=== PATIENT | female | born 1955 | race Caucasian/White ===

== ENCOUNTER → 2016-10-22 | Outpatient (CLI) | payer OTHER ==
[~2016-10-22] MED LIST: CALC600T9 PO; CHOL20009 PO; ESCI10TA17 PO; FURO-85 PO; LEVO150T PO; LISINOPRIL/HCTZ PO; LORA-741 PO; MULT-506 PO; OMEP40CA41 PO; OMG3 PO; OXYC-57 PO; SIMV20TA2 PO
[2016-10-22 13:24] LABS: ESTIMATED AVERAGE GLUCOSE 131 mg/dl; HA1C FLAG Normal (Normal)
[2016-10-22 14:30] LABS: BLOOD UREA NITROGEN 21 mg/dl (7-18); BUN/CREATININE RATIO 24.4 (10-20); CALCIUM 8.7 mg/dl (8.5-10.1); CARBON DIOXIDE 28 mmol/L (21-32); CHLORIDE 109 mmol/L (98-107); CHOLESTEROL 203 mg/dl (0-200); CHOLESTEROL/HDL RATIO 2.9; CREATININE 0.86 mg/dl (0.60-1.20); GLUCOSE 105 mg/dl (70-99); HDL CHOLESTEROL 71 mg/dl; SODIUM 143 mmol/L (136-145)
[2016-10-22 14:44] LABS: LDL CHOLESTEROL CALCULATED 117 mg/dl; TRIGLYCERIDES 73 mg/dl (0-150); VERY LOW DENSITY LIPOPROT CALC 15 mg/dl
== END | disposition home or self-care (01) ==
LOC: C.LABPBG 08:35
PROVIDERS: ATTEND Family Medicine
DX: Z11.59 Encounter for screening for other viral diseases (principal); E03.9 Hypothyroidism, unspecified; E78.5 Hyperlipidemia, unspecified

== ENCOUNTER → 2016-11-11 | Outpatient (CLI) | payer OTHER ==
[2016-11-11 13:47] LABS: LYME DISEASE AB IGG NEG (NEG); LYME DISEASE AB IGM NEG (NEG)
== END | disposition home or self-care (01) ==
LOC: C.LABPBG 08:35
PROVIDERS: ATTEND Family Medicine
DX: M19.90 Unspecified osteoarthritis, unspecified site (principal)

== ENCOUNTER → 2016-12-17 | Outpatient (CLI) | payer OTHER ==
[~2016-12-17] VITALS: Ht 168.9 cm; Wt 310.3 kg
[2016-12-17 16:05] VITALS: BP 159/76; PULSE 86; Ht 168.9 cm; Wt 310.3 kg
== END | disposition home or self-care (01) ==
LOC: C.NEUR 14:48
PROVIDERS: ATTEND Internal Medicine Pulmonary Disease
DX: G47.33 Obstructive sleep apnea (adult) (pediatric) (principal)

== ENCOUNTER → 2017-04-24 | Outpatient (CLI) | payer OTHER ==
--- NOTE | 2017-04-24 19:56 | DIAGNOSTIC IMAGING REPORT ---
THREE-PHASE NUCLEAR BONE SCAN OF THE KNEES CLINICAL HISTORY: Right knee pain status post arthroplasty. COMPARISON STUDY: Three-phase bone scan of the knees dated 02/20/2015. Radiograph of the right knee dated 01/17/2014. TECHNIQUE: Following the IV administration of 25.7 mCi of technetium 99m MDP, three-phase bone scan of the knees was performed. Anterior and posterior flow and blood pool phase imaging was acquired. Bone phase imaging of both knees was performed at three hours in multiple obliquities. Note that interpretation is suboptimal without current plain film correlate. FINDINGS: There is hyperemia identified around the left knee on both the flow and blood pool phase imaging. This is greatest around the distal femur. No significant hyperemia is seen involving the right knee. On the bone phase imaging there is a photopenic defect consistent with a right knee arthroplasty. There is slightly increased tracer activity identified around the tibial and femoral components of the arthroplasty. There is extensive abnormal tracer deposition seen around the left knee. IMPRESSION: 1. Three-phase positive bone scan of the left knee. This could represent advanced arthritic change, or less likely acute fracture or infection. Clinical correlation will be required. 2. Three-phase negative bone scan of the right knee. An arthroplasty is in place and there is increased tracer deposition identified around the arthroplasty on the bone phase imaging. This is nonspecific and could represent aseptic loosening. Clinical correlation will again be required. Electronically signed by: Eduin Germain M.D. 04/24/2017 5:15 PM Dictated Date/Time: 04/24/2017 5:11 PM
== END | disposition home or self-care (01) ==
LOC: C.NUCL 12:41
PROVIDERS: ATTEND Orthopaedic Surgery Sports Medicine
DX: M25.561 Pain in right knee (principal); Z96.651 Presence of right artificial knee joint

== ENCOUNTER → 2017-05-27 | Outpatient (CLI) | payer OTHER ==
[2017-05-27 15:34] LABS: SYNOVIAL FLUID APPEARANCE HAZY; SYNOVIAL FLUID COLOR PALE YELLOW; SYNOVIAL FLUID MONONUC RELAT 68.7 %; SYNOVIAL FLUID POLYNUC RELAT 31.3 %
== END ==
LOC: C.LABSPEC 14:06
PROVIDERS: ATTEND Orthopaedic Surgery Sports Medicine
DX: Z96.651 Presence of right artificial knee joint (principal)

== ENCOUNTER → 2017-08-11 | Outpatient (CLI) | payer OTHER ==
[2017-08-11 17:38] LABS: BASO % 0.5 %; BASO ABS # 0.05 K/uL (0-0.2); EOS % 4.5 %; EOS ABS # 0.45 K/uL (0-0.5); HEMATOCRIT 39.1 % (37-47); HEMOGLOBIN 12.7 g/dL (12.0-16.0); IG# 0.02 K/uL (0.00-0.02); LYMPH % 26.3 %; LYMPH ABS # 2.62 K/uL (1.2-3.4); MEAN CORPUSCULAR HEMOGLOBIN 30.5 pg (25-34); MEAN CORPUSCULAR HGB CONC 32.5 g/dl (32-36); MEAN PLATELET VOLUME 10.2 fL (7.4-10.4); MONO % 7.3 %; MONO ABS # 0.73 K/uL (0.11-0.59); NEUT % 61.2 %; NEUT ABS # 6.11 K/uL (1.4-6.5); PLATELET COUNT 296 K/uL (130-400); RED CELL DISTRIBUTION WIDTH CV 14.2 % (11.5-14.5); RED CELL DISTRIBUTION WIDTH SD 48.9 fL (36.4-46.3); WHITE BLOOD COUNT 9.98 K/uL (4.8-10.8)
[2017-08-13 14:09] LABS: ANA SCREEN TC 249X NEGATIVE (NEGATIVE)
== END | disposition home or self-care (01) ==
LOC: C.LABPBG 15:43
PROVIDERS: ATTEND Family Medicine
DX: M19.90 Unspecified osteoarthritis, unspecified site (principal)

== ENCOUNTER → 2017-09-04 | Outpatient (CLI) | payer OTHER ==
[2017-09-04 13:31] LABS: BLOOD UREA NITROGEN 27 mg/dl (7-18); CARBON DIOXIDE 27 mmol/L (21-32); GLUCOSE 125 mg/dl (70-99); POTASSIUM 4.1 mmol/L (3.5-5.1); SODIUM 138 mmol/L (136-145); URIC ACID 5.5 mg/dl (2.6-7.2)
== END | disposition home or self-care (01) ==
LOC: C.LABPBG 10:39
PROVIDERS: ATTEND Nurse Practitioner Adult Health
DX: M19.90 Unspecified osteoarthritis, unspecified site (principal); I10 Essential (primary) hypertension

== ENCOUNTER 2025-04-22 09:28 | Observation (INO) ==
--- NOTE | 2025-03-18 09:51 | PAT Medication Instructions ---
Medication Instructions Date of Service March 18, 2025 Home Medications Medication Instructions Recorded lorazepam 0.5 mg tablet 0.5 mg PO TID PRN anxiety #30 tabs 06/25/23 simvastatin 20 mg tablet 20 mg PO QAM #90 tabs 08/06/24 metformin 500 mg tablet 500 mg PO QAM #90 tabs 11/22/24 lisinopril 5 mg tablet 5 mg PO DAILY #90 tabs 01/12/25 cyanocobalamin (vitamin B-12) 1,000 mcg tablet,extended release 1,000 mcg PO QAM calcium carbonate (Calcium 600) 600 mg PO QAM multivitamin 1 tab PO QAM omeprazole 20 mg capsule,delayed release 20 mg PO QAM furosemide 20 mg tablet 20 mg PO DAILY PRN Edema scopolamine base 1 mg over 3 days transdermal patch 1 patch transdermal Q3D PRN Traveling lorazepam 0.5 mg tablet 0.5 mg PO TID PRN anxiety biotin 5 mg capsule 5 mg PO DAILY buspirone 5 mg tablet 5 mg PO QAM topiramate 25 mg tablet 25 mg PO HS PRN as per patient simvastatin 20 mg tablet 20 mg PO QAM metformin 500 mg tablet 500 mg PO QAM semaglutide 2 mg/dose (8 mg/3 mL) subcutaneous pen injector (Ozempic) 2 mg subcut Q7D escitalopram oxalate 20 mg tablet 20 mg PO QAM triamcinolone acetonide 0.1 % topical ointment 1 applic topical BID PRN Skin Irritation lisinopril 5 mg tablet 5 mg PO DAILY levothyroxine 150 mcg tablet (Synthroid) 150 mcg PO UD Continue as directed scopolamine base 1 mg over 3 days transdermal patch 1 patch transdermal Q3D PRN Traveling STOP 7 days prior to surgery semaglutide 2 mg/dose (8 mg/3 mL) subcutaneous pen injector (Ozempic) 2 mg subcut Q7D STOP taking 24 hours before surgery triamcinolone acetonide 0.1 % topical ointment 1 applic topical BID PRN Skin Irritation DO NOT take the morning of surgery cyanocobalamin (vitamin B-12) 1,000 mcg tablet,extended release 1,000 mcg PO QAM calcium carbonate (Calcium 600) 600 mg PO QAM multivitamin 1 tab PO QAM furosemide 20 mg tablet 20 mg PO DAILY PRN Edema biotin 5 mg capsule 5 mg PO DAILY metformin 500 mg tablet 500 mg PO QAM lisinopril 5 mg tablet 5 mg PO DAILY Take morning of surgery With a small sip of water, OTHERWISE NOTHING TO EAT OR DRINK AFTER MIDNIGHT: omeprazole 20 mg capsule,delayed release 20 mg PO QAM lorazepam 0.5 mg tablet 0.5 mg PO TID PRN anxiety (if needed) buspirone 5 mg tablet 5 mg PO QAM simvastatin 20 mg tablet 20 mg PO QAM escitalopram oxalate 20 mg tablet 20 mg PO QAM levothyroxine 150 mcg tablet (Synthroid) Take evening before surgery furosemide 20 mg tablet 20 mg PO DAILY PRN Edema (if needed) lorazepam 0.5 mg tablet 0.5 mg PO TID PRN anxiety (if needed) topiramate 25 mg tablet 25 mg PO HS PRN as per patient (if needed) Other Notes If you have any questions please call us at [phone] or [phone] or [phone] or [phone]
--- NOTE | 2025-03-23 15:17 | Anesthesiology Consultation ---
Date of Service March 23, 2025 Assessment & Plan (1) Encounter for pre-operative examination: - Check BSG DOS - Infectious disease screening: Per assessment on 03/17/25- No known recent infectious disease contacts or current infectious disease symptoms. - Outpatient joint assessment: Pt currently scheduled for inpatient pathway. If surgeon requests review for outpatient joint pathway, patient is not a recommended candidate for outpatient joint program from anesthesia standpoint based on available information. - GLP-1 medication instructions: Patient informed by PAT to stop 7 days prior to surgery- voiced understanding. DOS 04/22. Advised last dose to be 04/10. - S/P MRI lumbar spine 01/2025, under [facility], [facility]. No issues noted per post-op anesthesia progress note. Chart Review Chart Review: Acceptable Risk for Surgery and Patient seen in Pre Admission Testing Teaching & Discussion Pre-Anesthesia Teaching/Discussion Notes: Instructed NPO after midnight before surgery,except medications with 15 cc of water. Medication instructions provided according to the PAT guidelines. History Surgery Operation Date: 04/22/25 09:00 Proposed Procedures p Robotic Assisted Left Total Knee Arthroplasty - Wallace Mckinney, Height/Weight Height: 5 ft 6 in Weight: 118.1 kg Allergies Allergy/AdvReac Type Severity Reaction Status Date / Time Penicillins Allergy Intermediate Hives Verified 03/23/25 11:31 cephalexin [From Keflex] Allergy Mild Rash, Verified 03/23/25 11:31 Itchiness bupropion [From Contrave] AdvReac Mild Nausea Verified 03/23/25 11:31 naltrexone [From Contrave] AdvReac Mild Nausea Verified 03/23/25 11:31 venlafaxine AdvReac Mild Nausea Verified 03/23/25 11:31 Medications Home Medications Medication Instructions Recorded Confirmed Last Taken cyanocobalamin (vitamin B-12) 1,000 mcg PO QAM 10/05/21 03/23/25 1 Week Ago 1,000 mcg tablet,extended release ~01/04/25 calcium carbonate (Calcium 600) 600 mg PO QAM 10/24/21 03/23/25 1 Week Ago ~01/04/25 multivitamin 1 tab PO QAM 10/24/21 03/23/25 1 Week Ago ~01/04/25 omeprazole 20 mg capsule,delayed 20 mg PO QAM 10/24/21 03/23/25 01/10/25 10:00 release furosemide 20 mg tablet 20 mg PO DAILY PRN Edema 03/15/22 03/23/25 2 Years Ago ~01/11/23 scopolamine base 1 mg over 3 days 1 patch transdermal Q3D PRN 03/15/22 03/23/25 Unknown transdermal patch Traveling lorazepam 0.5 mg tablet 0.5 mg PO TID PRN anxiety #30 tabs 06/25/23 03/23/25 2 Months Ago ~11/11/24 biotin 5 mg capsule 5 mg PO DAILY 05/24/24 03/23/25 1 Week Ago ~01/04/25 buspirone 5 mg tablet 5 mg PO QAM 05/24/24 03/23/25 01/10/25 10:00 topiramate 25 mg tablet 25 mg PO HS PRN as per patient 05/24/24 03/23/25 2 Months Ago ~11/11/24 simvastatin 20 mg tablet 20 mg PO QAM #90 tabs 08/06/24 03/23/25 01/10/25 10:00 metformin 500 mg tablet 500 mg PO QAM #90 tabs 11/22/24 03/23/25 01/10/25 10:00 semaglutide 2 mg/dose (8 mg/3 mL) 2 mg subcut Q7D 12/06/24 03/23/25 01/02/25 subcutaneous pen injector (Ozempic) escitalopram oxalate 20 mg tablet 20 mg PO QAM 12/28/24 03/23/25 01/10/25 10:00 triamcinolone acetonide 0.1 % 1 applic topical BID PRN Skin 12/28/24 03/23/25 1 Month Ago topical ointment Irritation ~12/12/24 lisinopril 5 mg tablet 5 mg PO DAILY #90 tabs 01/12/25 03/23/25 Unknown levothyroxine 150 mcg tablet 150 mcg PO UD 03/17/25 03/23/25 Unknown (Synthroid) Past Medical History Medical History Anxiety and depression Bilateral edema of lower extremity Hx, no current issues, PRN lasix Chronic low back pain Unable to lay for MRI - reason for procedure 01/11/25 Claustrophobia Enlarged pulmonary artery See 08/12/2019 cardiology consult: prompted by enlarged central pulmonary arteries on 2018 x-ray and question of possible pulmonary HTN-felt possibly could be present, "not much evidence that she has pulmonary hypertension...cannot definitively exclude..." felt that additional testing was not needed given pt asymptomatic status at that time, prn f/u GERD (gastroesophageal reflux disease) Heart murmur Echo 12/22/24- no significant valvular abnormalities Hx of migraines Hyperlipidemia Hypertension Hypothyroidism Morbid obesity with BMI of 50.0-59.9, adult Prediabetes Oral/Weekly Injectable Rheumatoid arthritis Seasonal allergies Sleep apnea CPAP Exercise / Class Metabolic Activity II 4-5 Yardwork/Stairs/Walk up hill (one FS: No CP, no SOB) Past Family History Family History Father Cardiac disorder Hypertension Mother Cardiac disorder Hypertension Alzheimer disease Unknown Myocardial infarction Sister No problems noted. Brother No problems noted. Brother Hypertension Denies family history of Ovarian cancer Prostate cancer Breast cancer Colorectal cancer Past Surgical History Surgical History History of anesthesia reaction Slow to wake up History of ankle surgery Right History of arthroscopy Left Knee History of carpal tunnel surgery Right History of cataract surgery Bilateral History of cholecystectomy History of colonoscopy History of knee replacement Right History of repair of rotator cuff Right History of revision of total replacement of right knee joint multiple Hx of magnetic resonance imaging 01/2025, MRI lumbar spine under [facility], [facility] PONV (postoperative nausea and vomiting) [place] teeth removed Past Anesthesia History No Family Hx of Anesthesia Complications and Other (Slow to wake) History of PONV History of PONV (+ nausea) and Hx of Motion Sickness Social History Smoking Status: Never smoker Do You Dip or Chew Tobacco: No Hx Alcohol Use: Yes Alcohol type: hard liquor alcohol intake frequency: a few times a month Hx Substance Use: No substance use type: does not use Review of Systems Patient denies chest pain, shortness of breath, dyspnea on exertion, fever, chills, cough, wheezing, palpitations. Physical Exam Vital Signs BP 117/66 P 72 TEMP 98.0 SP02 96%RA RESP 16 Physical Full cervical extension range of motion. Full TMJ range of motion. TMD > 3.5 finger breaths Mallampati Score II Dentition: missing molar, + crowns, + chipped teeth (lower front, upper right molar) Lungs: clear throughout to auscultation Cardiac: regular rate and rhythm, no murmurs noted Spine: normal Carotid arteries: negative bruit Extremities: no LE edema Lab Results Anesthesia Preop Results Results Anesthesia Widget: WBC 8.90 K/ul (4.8-10.8) 03/23/25 Hgb 12.6 g/dl (12.0-16.0) 03/23/25 Hct 37.8 % (37.0-47.0) 03/23/25 Plt 269 K/uL (130-400) 03/23/25 Na 139 mmol/L (136-145) 03/23/25 K 4.4 mmol/L (3.5-5.1) 03/23/25 Cl 105 mmol/L (98-107) 03/23/25 CO2 29 mmol/L (21-32) 03/23/25 BUN 17 mg/dl (6-23) 03/23/25 Creat 0.72 mg/dl (0.6-1.2) 03/23/25 Glucose Level 99 mg/dl (70-99(Fasting)) 03/23/25 PT 10.8 Seconds (9.0-12.0) 03/23/25 PTT 25 Seconds (21-31) 03/23/25 INR 1.0 (0.9-1.1) 03/23/25 TSH 0.045 uIu/ml (0.300-4.500) L 03/22/25 Free T4 1.48 ng/dl (0.61-1.60) 03/22/25 Blood Type A Positive 03/23/25 Antibody Screen NEGATIVE 03/23/25 Testing Electrocardiogram Date: 01/11/25 Findings: + NSR @ (67) Chest X-Ray Date: 03/23/25 Findings: + NAD Echocardiogram Date: 12/22/24 EF: >70% Other Findings: + LVH (mild/concentric) and + diastolic dysfunction (Grade I ) Hyperdynamic LV systolic function RWMA cannot be excluded due to limited visualization Probable normal chamber dimensions No significant valvular abnormalities
--- NOTE | 2025-04-21 07:47 | History & Physical Report ---
Date of Service April 21, 2025 Assessment & Plan (1) Osteoarthritis of left knee: We will proceed with a left total knee arthroplasty. Postoperatively, she will be started on aspirin for DVT prophylaxis and kept overnight hospital for postop medical management. She plans to have the hospital set up home health for discharge. History of Present Illness Chief Complaint: Osteoarthritis of the left knee. Primary Care Provider: Adwoa Nielsen MD Sarah is a pleasant 69-year-old female who has been dealing with chronic worsening left knee pain. She has a history of a right total knee arthroplasty done by Dr. Terrazas. He had to do a revision for a loose patella. Unfortunately, she was still having pain. She then went to [facility] and had a full revision of her right knee. She is still having some soreness with that. She is now dealing with a lot of left knee pain. X-rays and clinical examination have shown advanced arthritis of the left knee. After failing conservative treatment, she has elected proceed with a left total knee arthroplasty. Allergies Allergy/AdvReac Type Severity Reaction Status Date / Time Penicillins Allergy Intermediate Hives Verified 04/18/25 08:58 cephalexin [From Keflex] Allergy Mild Rash, Verified 04/18/25 08:58 Itchiness bupropion [From Contrave] AdvReac Mild Nausea Verified 04/18/25 08:58 naltrexone [From Contrave] AdvReac Mild Nausea Verified 04/18/25 08:58 venlafaxine AdvReac Mild Nausea Verified 04/18/25 08:58 Home Medications Medication Instructions Recorded Confirmed Type cyanocobalamin (vitamin B-12) 1,000 mcg PO QAM 10/05/21 04/18/25 History 1,000 mcg tablet,extended release calcium carbonate (Calcium 600) 600 mg PO QAM 10/24/21 04/18/25 History multivitamin 1 tab PO QAM 10/24/21 04/18/25 History omeprazole 20 mg capsule,delayed 20 mg PO QAM 10/24/21 04/18/25 History release scopolamine base 1 mg over 3 days 1 patch transdermal Q3D PRN 03/15/22 04/18/25 History transdermal patch Traveling lorazepam 0.5 mg tablet 0.5 mg PO TID PRN anxiety #30 tabs 06/25/23 04/18/25 Rx biotin 5 mg capsule 5 mg PO DAILY 05/24/24 04/18/25 History buspirone 5 mg tablet 5 mg PO QAM 05/24/24 04/18/25 History simvastatin 20 mg tablet 20 mg PO QAM #90 tabs 08/06/24 04/18/25 Rx metformin 500 mg tablet 500 mg PO QAM #90 tabs 11/22/24 04/18/25 Rx triamcinolone acetonide 0.1 % 1 applic topical BID PRN Skin 12/28/24 04/18/25 History topical ointment Irritation lisinopril 5 mg tablet 5 mg PO DAILY #90 tabs 01/12/25 04/18/25 Rx escitalopram oxalate 20 mg tablet 20 mg PO QAM #90 tabs 03/29/25 04/18/25 Rx Synthroid 150 mcg tablet 150 mcg PO DAILY #90 tabs 04/18/25 04/18/25 Rx (levothyroxine) semaglutide 2 mg/dose (8 mg/3 mL) 2 mg (0.75 mL) subcut Q7D #3 mL 04/18/25 04/18/25 Rx subcutaneous pen injector (Ozempic) topiramate 25 mg tablet 25 mg PO HS as per patient 04/18/25 04/18/25 History Past Med/Surg History Problem List Osteoarthritis of left knee Encounter for pre-operative examination Hair loss Graves disease Hypothyroidism, postablative Nocturnal hypoxemia Severe obstructive sleep apnea GERD without esophagitis Chronic back pain Metabolic syndrome Neurogenic claudication due to lumbar spinal stenosis Rheumatoid arthritis History of colon polyps Degenerative arthritis of interphalangeal joint of right thumb Pain of right thumb Pulmonary hypertension Motion sickness (Acute) Prediabetes (Chronic) Obesity (Chronic) Hypertension (Chronic) Fatigue (Chronic) Depression (Chronic) Chronic pain of right knee (Chronic) Bilateral edema of lower extremity (Chronic) Arthritis (Chronic) Anxiety (Chronic) Allergic rhinitis (Chronic) Medical History Hyperlipidemia Heart murmur Echo 12/22/24- no significant valvular abnormalities Sleep apnea CPAP Hypothyroidism Hypertension Chronic low back pain Unable to lay for MRI - reason for procedure 01/11/25 Claustrophobia Bilateral edema of lower extremity Hx, no current issues, PRN lasix Seasonal allergies Enlarged pulmonary artery See 08/12/2019 cardiology consult: prompted by enlarged central pulmonary arteries on 2018 x-ray and question of possible pulmonary HTN-felt possibly could be present, "not much evidence that she has pulmonary hypertension...cannot definitively exclude..." felt that additional testing was not needed given pt asymptomatic status at that time, prn f/u Morbid obesity with BMI of 50.0-59.9, adult Rheumatoid arthritis GERD (gastroesophageal reflux disease) Prediabetes Oral/Weekly Injectable Anxiety and depression Hx of migraines Surgical History Hx of magnetic resonance imaging 01/2025, [place] lumbar spine [place] [facility] (postoperative nausea and vomiting) History of revision of total replacement of right knee joint multiple History of anesthesia reaction Slow to wake up History of arthroscopy Left Knee History of colonoscopy [place] teeth removed History of cataract surgery Bilateral History of carpal tunnel surgery Right History of cholecystectomy History of ankle surgery Right History of repair of rotator cuff Right History of knee replacement Right Family History Father Cardiac disorder Hypertension Mother Cardiac disorder Hypertension Alzheimer disease Unknown Myocardial infarction Sister No problems noted. Brother No problems noted. Brother Hypertension Denies family history of Ovarian cancer Prostate cancer Breast cancer Colorectal cancer Social History Smoking Status: Never smoker Second Hand Exposure: No; Do You Dip or Chew Tobacco: No; Tobacco Cessation Education Requested by Patient: No Hx Alcohol Use: Yes Alcohol type: hard liquor Alcohol Intake Frequency: 2-4 x/Month Hx Substance Use: No Preferred Language: Kiswahili Communication Ability: Effective Visual Impairment: Limited Hearing Ability: Normal Senior Technical Editor Required: No Beliefs That Will Affect Care: None marital status: Single Current Living Situation: Significant Other current occupational status: retired current occupation: surg tech Other Information That Helps Us Care for You: No Feels Safe at Home: Yes Safety Concerns: Feels Safe At This Time Childhood Exposure to Second-Hand Smoke: Yes Dental Care, Regularly: Yes Physical Activity Frequency: 1-2 Times per Week Physical Activity Frequency Comment: water aerobics Seatbelt Use: always Sunscreen Use: Yes Assistive Devices: Contacts, CPAP and Glasses Review of Systems All systems reviewed & are unremarkable except as noted in HPI & below. Physical Exam On physical exam the left knee, she has slight valgus Forni. Tense palpation of the distal lateral femoral condyle and over the lateral joint line.. Constitutional WD/WN, vitals as above Eyes PERRL, conjunctivae normal, anicteric sclerae ENMT external ear and nose normal, oropharynx normal Neck trachea midline, no thyromegaly Respiratory normal respiratory effort Cardiovascular RRR, no murmur, no edema Gastrointestinal (Abdomen) normal bowel sounds, soft, nontender, no hepatosplenomegaly Psychiatric A+Ox3, euthymic affect Results & Data Results & Data Laboratory Results . Diagnostic Findings . PG Care Time/CCT Total # of Minutes Spent Total Time Spent with Patient: Total time spent is greater than 50% in coordination of care (as documented) at patient's floor/unit and/or counseling patient: Coding Level of Care Code None Diagnoses Osteoarthritis of left knee M17.12
[~2025-04-22 09:28] MED LIST changes: -CALC600T9 PO; -CHOL20009 PO; -ESCI10TA17 PO; -FURO-85 PO; -LEVO150T PO; -LISINOPRIL/HCTZ PO; -LORA-741 PO; -MULT-506 PO; -OMEP40CA41 PO; -OMG3 PO; -OXYC-57 PO; +ROPIVACAINE 0.5% 5 MG/ML 30 ML VIAL ONE; -SIMV20TA2 PO
[2025-04-22] MEDS ORDERED: PROPOFOL IV EMULSION 10 MG/ML 100 ML VIAL IV ONE (09:55)
[2025-04-22] MEDS ORDERED: LIDOCAINE 2% 2 ML VIAL/AMP(20MG/ML) INFIL ONE (09:56)
[2025-04-22] MEDS ORDERED: MIDAZOLAM HCL 1 MG/ML 2ML VIAL ONE ×2 (09:56→11:10)
[2025-04-22] MEDS: ACETAMINOPHEN 500 MG TAB PO SCH ×2 (09:58→17:40)
[2025-04-22] MEDS: GABAPENTIN 300 MG CAP PO SCH (09:58)
[2025-04-22] MEDS: FAMOTIDINE 20 MG TAB PO SCH (09:58)
[2025-04-22] MEDS: LR 500ML BOLUS, THEN 15ML/HR IV SCH (10:16)
[2025-04-22] MEDS: LR 60ML/HR IV SCH (10:16)
[2025-04-22] MEDS: dexAMETHasone**PF** 10 MG/ML VIAL IV SCH (10:16)
--- NOTE | 2025-04-22 10:26 | History & Physical Bridge Note ---
Date of Service April 22, 2025 History & Physical Bridge Note I have examined the patient, reviewed the History & Physical and in the interval since the performance of the History & Physical I have noted the following changes of clinical significance: no changes noted
[2025-04-22] MEDS ORDERED: ATROPINE SULFATE 0.1 MG/ML 10ML SYR IV PRN (10:52)
[2025-04-22] MEDS ORDERED: HYDROmorphone INJ 1 MG/ML SYRINGE IV PRN (10:52)
[2025-04-22] MEDS ORDERED: ONDANSETRON INJ 2 MG/ML 2 ML VIAL IV PRN ×2 (10:52→15:25)
[2025-04-22] MEDS: TRANEXAMIC ACID 1,000 MG **IV Pre-op IV SCH (11:09)
[2025-04-22] MEDS ORDERED: ePHEDrine sulfate 50 MG/5 ML SYR ONE (11:37)
[2025-04-22] MEDS: ORTHO JOINT ANESTHETIC ONE (11:52)
[2025-04-22] MEDS: ROPIV 0.5% 246mg, Ketorolac 30mg, EPINEPHrine 0.5mg in NSS INFIL SCH (12:27)
--- NOTE | 2025-04-22 12:36 | Operative Report ---
PG Post Operative Report Pre & Post Diagnosis Operation Date: 04/22/25 11:00 Pre-Op Diagnosis: Osteoarthritis of left knee Post-Op Diagnosis: Osteoarthritis of left knee I identified the patient and participated in the time-out.: Yes Procedure Operation Date: 04/22/25 11:00 Actual Procedures p Robotic Assisted Left Total Knee Arthroplasty(Left) - Wallace Mckinney DO Surgeon Wallace Mckinney DO Folded Towel Machine Operator Alexander De Luna PA-C Estimated Blood Loss 30 Findings Consistent with Post-Op Diagnosis Specimens Left femoral and tibial bone Description of Procedure Implants used: I used a Earl Persona total knee arthroplasty system with a size 8 standard PS femur, D tibia, 29 patella, and a size 12 CPS polyethylene bearing. All components were press-fit in place. Sarah arrived [facility] for the above procedure. She was seen in the preoperative holding area and the operative extremity was identified and signed. She was given a preoperative antibiotic, TXA, a spinal anesthetic and an adductor nerve block. She was taken back to the operating room and laid on the table in supine position. She was given basic sedation. The operative knee was then prepped and draped in sterile fashion. A timeout was done, and the patient and the operative extremity was properly identified. A midline incision was made directly over the patella. Dissection was taken down to the extensor mechanism. A medial parapatellar arthrotomy was used. The medial retinaculum was released and the fat pad was mostly excised. The knee was flexed and the ACL, PCL, and meniscus were removed. The alignment of the knee replacement was assisted with a Earl[employer] robotic knee. The femoral array was pinned in the distal femur and the tibial array was pinned using a percutaneous technique in the upper shaft of the tibia. The robot was appropriately calibrated and the structure of the knee was mapped out. The components were then manipulated on the screen to account for any malalignment and to assist in gap balancing. Once I was happy with the placement of the components on the screen, a distal femoral cutting guide was brought in place. The distal femur was then resected. The femur measured to be a size 8. A 4-in-1 cutting block was then put into place by the robot and 2 peg holes were drilled. The 4-in-1 cutting block was then impacted into place and anterior, posterior, and chamfer cuts were made. The cutting block was then brought down to the tibia and pinned into place. The proximal tibia was then resected. The posterior aspect of the knee was then opened up and any additional meniscus fragments and osteophytes were removed. The tibia measured to be a size D. The tibial plate was then placed in the appropriate rotation and the tibia was drilled and punched. Trial components were then placed. The patella was then everted and 9 mm was resected off the posterior aspect of the patella. The patella measured to be a size 29. 3 peg holes were then drilled. A trial patella was placed. A size 12 CPS polyethylene insert was then trialed. The knee was brought through a full range of motion and felt to be stable. Trial components were then removed. The surrounding soft tissues were injected with 100 cc of an orthopedic pain control cocktail. All components were then press-fit into place. The final polyethylene insert was then snapped into place. The tourniquet was deflated. Hemostasis was obtained. A dilute betadyne lavage was then done for 3 minutes. The joint was then irrigated with normal saline solution. The medial parapatellar arthrotomy was then closed with #1 Vicryl suture. The skin was closed with 2-0 Vicryl, 3-0V lock suture, and [place] Zipline. A soft compressive dressing was placed. She was then transferred to a hospital bed and taken to the postanesthesia care unit in stable condition. She tolerated the procedure well. Alexander De Luna PA-C, was present for the entire procedure. He was critical for patient positioning, prepping, draping, retraction exposure, wound closure and application of sterile dressing. I attest to the content of the Intraoperative Record and any orders documented therein. Any exceptions are noted below.
--- NOTE | 2025-04-22 13:45 | XRay Report ---
XR knee LT 1 or 2V routine CLINICAL HISTORY: Surgical Post Op COMPARISON: None FINDINGS: Left knee prosthesis shows no hardware complication. There is expected soft tissue gas. IMPRESSION: Unremarkable postoperative exam. ACT 112: Negative or not required by law. Electronically signed by: Jason Cole M.D. 04/22/2025 1:44 PM
--- NOTE | 2025-04-22 14:54 | Anesthesiology Progress Note ---
Date of Service April 22, 2025 Anesthesia Post Procedure Vital Signs Vital Signs: Temp Pulse Resp BP BP Pulse Ox O2 Del Method 04/22/25 14:30 64 18 115/64 94 Room Air 04/22/25 14:15 66 20 118/62 95 Room Air 04/22/25 14:05 64 22 121/62 94 Room Air 04/22/25 13:55 62 24 128/64 94 Room Air 04/22/25 13:45 63 20 125/62 97 Room Air 04/22/25 13:35 62 20 134/66 96 Room Air 04/22/25 13:25 69 19 120/60 97 Room Air 04/22/25 13:15 67 20 138/61 100 Oxymask 04/22/25 13:06 36.1 C L 73 16 138/60 100 Oxymask 04/22/25 09:49 36.5 C 70 20 136/63 96 Room Air O2 Flow Rate 04/22/25 14:30 04/22/25 14:15 04/22/25 14:05 04/22/25 13:55 04/22/25 13:45 04/22/25 13:35 04/22/25 13:25 04/22/25 13:15 3 04/22/25 13:06 6 04/22/25 09:49 Pain Intensity Left Knee: Pain Intensity: 7 Back: Pain Intensity: 5 Transfer of Care Handoff Completed per policy Notes Mental Status: alert / awake / arousable and participated in evaluation Patient Amnestic to Procedure: Yes Nausea / Vomiting: adequately controlled Pain: adequately controlled Airway Patency, RR, SpO2: stable & adequate BP & HR: stable & adequate Hydration State: stable & adequate Anesthetic Complications: no major complications apparent and Pt Satisfied with anesthetic care
[2025-04-22] MEDS ORDERED: HYDROmorphone INJ 0.5 MG/0.5 ML SYR IV PRN (15:25)
[2025-04-22] MEDS ORDERED: NON-FORMULARY MEDICATION (Semaglutide [Ozempic] 2 mg/dose (8 mg/3 mL) pen injector) SQ SCH (15:25)
[2025-04-22] MEDS ORDERED: METOCLOPRAMIDE HCL INJ 5 MG/ML 2 ML VIAL IV PRN (15:25)
[2025-04-22] MEDS ORDERED: PHARMACY GLYCEMIC MGMT CONSULT PRN (15:25)
[2025-04-22] MEDS ORDERED: MAGNESIUM HYDROXIDE SUSP 30 ML UDC PO PRN (15:25)
[2025-04-22] MEDS ORDERED: NALOXONE HCL 0.4 MG/1 ML VIAL/CARP IV PRN (15:25)
[2025-04-22] MEDS: SODIUM CHLORIDE 0.9% 1,000 ML IV SCH (17:09)
[2025-04-22] MEDS: INSULIN ASPART PER UNIT CHARGE SC SCH (17:34)
[2025-04-22] MEDS: LANTUS PER UNIT CHARGE SC ONE (17:34)
[2025-04-22] MEDS: KETOROLAC TROMETHAMINE 15 MG/ML VIAL IV SCH (17:36)
[2025-04-22] MEDS: SENNA 8.6 MG TAB PO SCH (21:53)
[2025-04-22] MEDS: TOPIRAMATE 25 MG TAB PO SCH (21:53)
[2025-04-22] MEDS: DOCUSATE SODIUM 100 MG CAP PO SCH (21:53)
[2025-04-22] MEDS: ASPIRIN 81 MG ECTAB PO SCH (21:54)
[2025-04-23 03:05] VITALS: RESP 16
[2025-04-23] MEDS: LEVOTHYROXINE SODIUM 150 MCG TABLET PO SCH (05:35)
[2025-04-23 07:10] VITALS: BP 111/74; PULSE 69; TEMP 97.5; O2SAT 98
[2025-04-23] MEDS: busPIRone 5 MG TAB PO SCH (08:24)
[2025-04-23] MEDS: CALCIUM CARBONATE 1250MG TAB PO SCH (08:25)
[2025-04-23] MEDS: MULTIVITAMIN TAB PO SCH (08:25)
[2025-04-23] MEDS: ESCITALOPRAM OXALATE 20 MG TAB PO SCH (08:25)
[2025-04-23] MEDS: SIMVASTATIN 20 MG TAB PO SCH (08:25)
--- NOTE | 2025-04-23 09:09 | Orthopedic Progress Note ---
Date of Service April 23, 2025 Assessment & Plan (1) Status post left knee replacement: Overall she is doing very well. She is not having much pain in the left knee. She will be seen by physical therapy today for ambulation and range of motion exercises. The nursing staff can change her dressing after physical therapy. She is on aspirin for DVT prophylaxis. She can be discharged home later today. She will follow-up with orthopedics in 2 weeks. Lana Smith was seen and examined at bedside this morning. Overall she is doing very well. She is not having much pain in the left knee. She has been up and ambulating to the bathroom. She has no complaints.. Review of Systems All systems reviewed & are unremarkable except as noted in HPI & below. Physical Exam On physical exam the left knee, the dressing is clean and dry. Her leg is out full extension. She has active dorsiflexion and plantarflexion of her left ankle.. Results & Data Results & Data Laboratory Results . Diagnostic Findings Postoperative x-rays of the left knee show the prosthesis to be in anatomic alignment without any evidence of fracture, dislocation, or loosening.. PG Care Time/CCT Total # of Minutes Spent Total Time Spent with Patient: Total time spent is greater than 50% in coordination of care (as documented) at patient's floor/unit and/or counseling patient: Coding Level of Care Code 77687 Post Operative Follow-Up Diagnoses Status post left knee replacement Z96.652
--- NOTE | 2025-04-23 09:40 | Pharmacy Report ---
Pharmacy Glycemic Short Note 2 - Date of Service April 23, 2025 - Glycemic Short BSG Results (Last 24 hours): 04/22/25 04/22/25 04/22/25 09:48 16:24 20:13 POC Glucose 107 H 158 H 155 H 04/23/25 07:08 POC Glucose 127 H OUTPATIENT ANTIDIABETIC REGIMEN: * Metformin 500mg PO Daily * Ozempic 2mg SQ Qweekly * 5.3% A1c 11/10/24 ASSESSMENT: * 70 YO F, POD1 LTKA. Patient received dexamethasone 10mg IV x1 preop - covered yesterday with 15 units of Lantus. * Blood sugars at goal, no further steroids, no further basal needed. * Loosen NovoLog parameters as steroids are wearing off. * Plan to discharge later today after PT. PLAN FOR INPATIENT GLYCEMIC CONTROL: * Hold outpatient oral diabetes medications * Basal insulin * Lantus 15 units SQ x 1 yesterday to cover steroids, no further basal needed * Bolus insulin * NovoLog per scale ACHS or Q6hrs while NPO * Goal Range: Low 120 mg/dL - High 160 mg/dL * Correction Factor: 30 mg/dL/unit * Nutritional / Prandial insulin per carb ratio of 1 unit per 10 grams CHO consumed
== END 2025-04-23 11:53 | disposition home or self-care (01) ==
LOC: 3E 09:28 → ASU 09:28